=== PATIENT | female | born 1975 | race Caucasian/White ===

== ENCOUNTER 2016-12-13 09:32 | Outpatient (CLI) | payer OTHER | END 2016-12-13 18:23 | disposition home or self-care (01) | LOC: SUS 09:32 | DX: N83.202 Unspecified ovarian cyst, left side (principal); N83.201 Unspecified ovarian cyst, right side; Z87.42 Personal history of other diseases of the female genital tract | CPT/HCPCS: 76830-TC; 76857 ==

== ENCOUNTER 2017-05-11 11:35 | Outpatient (CLI) | payer OTHER | END 2017-05-11 19:44 | disposition home or self-care (01) | LOC: SRD 11:35 | DX: M25.562 Pain in left knee (principal) | CPT/HCPCS: 73564 ==

== ENCOUNTER 2020-06-01 13:14 | Emergency (ER) | payer OTHER ==
[~2020-06-01] VITALS: Ht 167.6 cm; Wt 74.4 kg
[2020-06-01 13:36] VITALS: BP_SYST 147
[2020-06-01 13:42] LABS: BASOPHILS # (AUTO) 0.1 K/uL (0.0-0.2); BASOPHILS % (AUTO) 1.1 % (0.0-2.0); EOSINOPHILS # (AUTO) 0.1 K/uL (0.0-0.4); EOSINOPHILS % (AUTO) 2.6 % (0.0-4.0); HEMATOCRIT 31.7 % (36-48); HEMOGLOBIN 10.2 g/dL (12.0-16.0); LYMPHOCYTES # (AUTO) 1.6 K/uL (1.0-5.5); LYMPHOCYTES % (AUTO) 29.7 % (20.5-51.5); MEAN CORPUSCULAR HEMOGLOBIN 24 pg (27-31); MEAN CORPUSCULAR HGB CONC 32 % (32-36); MEAN CORPUSCULAR VOLUME 74 fL (79.0-98.0); MONOCYTES # (AUTO) 0.5 K/uL (0.0-1.0); MONOCYTES % (AUTO) 9.4 % (1.7-9.3); NEUTROPHILS # (AUTO) 3.1 K/uL (1.8-7.7); NEUTROPHILS % (AUTO) 57.2 % (40.0-70.0); PLATELET COUNT (AUTO) 422 K/uL (130-430); RED BLOOD CELL COUNT(AUTO) 4.29 MIL/uL (4.2-6.2); WHITE BLOOD COUNT (AUTO) 5.4 K/uL (4.8-10.8)
[2020-06-01 13:47] LABS: CREATININE 0.7 mg/dL (0.55-1.30)
[2020-06-01 13:51] LABS: INR 1.1 (0.8-1.2); PROTHROMBIN TIME 11.1 SECS (9.5-12.5)
--- NOTE | 2020-06-01 13:51 | NUR ---
Patient to ER bed 07 to gown for evaluation. Side rails up.
[2020-06-01 13:53] LABS: ALBUMIN 3.9 g/dL (3.4-4.8); TOTAL BILIRUBIN 0.3 mg/dL (0.0-1.0)
--- NOTE | 2020-06-01 13:55 | NUR ---
Dr An evaluating patient at bedside
[2020-06-01 14:09] LABS: BILIRUBIN,URINE NEGATIVE (NEGATIVE); BLOOD, URINE NEGATIVE (NEGATIVE); CLARITY/URINE CLEAR (CLEAR); COLOR,URINE YELLOW (YELLOW); GLUCOSE,URINE NEGATIVE (NEGATIVE); KETONES,URINE NEGATIVE (NEGATIVE); LEUKOCYTE ESTERASE ,URINE NEGATIVE (NEGATIVE); NITRITE, URINE NEGATIVE (NEGATIVE); PH,URINE 5.5 (5.0-8.0); PROTEIN URINE NEGATIVE (NEGATIVE); UROBILINOGEN,URINE 0.2 (0.2-1.0)
--- NOTE | 2020-06-01 14:30 | NUR ---
Patient BIB self ambulates to ER bed 7 with c/o 03/22 LLQ abd pain since this Sunday. Patient has h/o polyps and cholecystecomy. Denies nausea, vomiting, diarrhea, and urinary s/s. Even chest rise and fall with respirations. Will continue to monitor.
--- NOTE | 2020-06-01 14:32 | NUR ---
Patient was asked if she would like medication for 8/10 LLQ abdominal pain that feels "crampy with pressure." She refuses pain medication at this time.
--- NOTE | 2020-06-01 14:52 | NUR ---
veterinary technologist at bedside to transport patient to radiology department. Patient is able to ambulate with steady gait.
--- NOTE | 2020-06-01 15:14 | NUR ---
Patient returns from ultrasound at this time.
--- NOTE | 2020-06-01 16:08 | NUR ---
Dr. An at bedside for reevaluation.
[2020-06-01 16:12] VITALS: BP_SYST 135
--- NOTE | 2020-06-01 16:12 | NUR ---
Patient given written and verbal discharge instructions and verbalizes understanding. ER MD Dr. An discussed with patient the results and treatment provided. Patient in stable condition. ID arm band removed. Rx of Motrin given. Patient educated on pain management and to follow up with PCP. Pain Scale 7/10 but refuses pain medication. Opportunity for questions provided and answered. Medication side effect fact sheet provided.
== END 2020-06-01 16:12 | disposition home or self-care (01) ==
LOC: SED 13:14
DX: R10.32 Left lower quadrant pain (principal); I10 Essential (primary) hypertension; Z90.49 Acquired absence of other specified parts of digestive tract
CPT/HCPCS: 36415; 76830-TC; 76857; 80053; 81003; 81025; 83690-TC; 84703; 85025; 85610-TC; 85730-TC; 99285